=== PATIENT | male | born 1995 | race Caucasian/White ===

== ENCOUNTER 2024-01-10 10:34 | Emergency (ER) | payer SELFPAY ==
[2024-01-10 10:35] VITALS: BP 144/83; PULSE 88; RESP 15; TEMP 36.6; O2SAT 97; BMI 37.2
[2024-01-10 10:40] VITALS: BP 144/83; PULSE 89; O2SAT 98
--- NOTE | 2024-01-10 10:44 | CT_ITS ---
FINAL REPORT TECHNIQUE: Axial CT images of the face were obtained without contrast. Coronal and sagittal reformatted images were also obtained. This study was performed with techniques to keep radiation doses as low as reasonably achievable, (ALARA). Individualized dose reduction techniques using automated exposure control or adjustment of mA and/or kV according to the patient's size were employed. CLINICAL HISTORY: saw vs mandible L sided chin laceration and bone COMPARISON: Plan FINDINGS: A small bony fragment is seen adjacent to the anterior and left aspect of the mandible, with a small defect of an adjacent left canine tooth, consistent with the patient's history of injury with a saw. There is a small amount of adjacent soft tissue air present. There is no evidence of mandibular fracture. There is a soft tissue defect in the chin, slightly paracentral to the left. No other acute bony abnormality is identified. There are multiple cervical lymph nodes, in this age group likely reactive. There is mucosal thickening in the right sphenoid and maxillary sinuses. IMPRESSION: Small bone fragment adjacent to the anterior left aspect of the mandible, with a small defect of an adjacent left canine tooth, consistent with the patient's clinical history of injury with a saw. A tiny amount of soft tissue air is present as well. There is a soft tissue defect in the chin paracentral into the left as well. No other acute bony abnormality is identified. The mandible itself appears intact. Reviewed, Interpreted and Dictated by Juancho Schuster III, MD Transcribed by Taylor Card Authenticated and [facility]
--- NOTE | 2024-01-10 10:46 | ED_ITS ---
Discharge Plan Disposition Chief Complaint: Wound/Laceration Referrals Follow up/Referrals: Provider,Referral, MD [Primary Care Provider] - See instructions Clinical Impressions Clinical Impression: Complex laceration of face Instructions Patient Instructions: DI for Laceration Repair Print Language Print Language: Urdu Discharge ED Provider: Hermes Cuellar General Adult HPI General Chief complaint: Wound/Laceration Stated complaint: ao saw cut to chin and mouth Time Seen by Provider: 01/10/24 10:35 Mode of Arrival: Ambulatory Source of Information: Patient Limitations: No Limitations Description of Symptoms (Recalled from ER Triage Doc. by RN): pt presents to ED with laceration to chin, pt was working on a water line when the chair saw slipped and come up and hit him in the chin. not up to date on tetanus vaccine. History of Present Illness HPI narrative: Please note that above description of symptoms, in this electronic medical record under categorization of recalled from ER triage doctor by RN are reflective of an initial nursing assessment, however, is not reflective of my full history and physical exam that was personally taken and clarified. Consequentially, this preceding description of symptoms, which may include the patient's categorized chief complaint in the EMR, do not reflect my personal clinical impression, and the ultimate description of history of present illness and patient stated complaints should be deferred to this section of the note. Unless stated otherwise or congruent with this section of the note, additional signs, symptoms, or incongruence should be interpreted as inaccurate with my clinical impression. Related Data Allergies Allergy/AdvReac Type Severity Reaction Status Date / Time No Known Allergies Allergy Verified 01/10/24 10:46 [facility] Disclaimer: The information contained in this section may have been updated after the patient was seen, as this information can be updated by other users. Social History Smoking Status: Never smoker alcohol intake: never current occupational status: employed Travel in the last 8 weeks: None ROS Obtained: Yes All systems reviewed & no additional complaints except as documented Physical Exam General General appearance: alert Head Head exam: normocephalic and other (7 to 8 cm laceration left side of mandible at the chin with through and through injury. Bone able to be probed. Penetrates through soft tissue into oral cavity violating gingiva, root of tooth 21. Tooth is stable.) Eye Eye exam: Present normal appearance, PERRL and EOMI Neck Neck exam: Present normal inspection, full ROM and trachea midline Respiratory Respiratory exam: Absent respiratory distress, wheezes, stridor, accessory muscle use or prolonged expiratory phase Cardiovascular Cardiovascular exam: Present other (Pulses equal symmetric in upper and lower extremities) Abdominal Exam Abdominal exam: Present soft; Absent distention, tenderness or pulsatile mass Extremities Exam Extremities exam: Absent edema Neurological Exam Neurological exam: Present alert, oriented X3 and CN II-XII intact; Absent motor sensory deficit Skin Skin exam: Present warm and dry; Absent diaphoresis or erythema Medical Decision Making Medical Records Medical records reviewed: Yes I reviewed the patient's medical records. Screening: Per USPSTF and CDC recommendations, given the prevalence of disease in our region, it is our hospital?s policy to screen for HIV and viral Hepatitis for all patients aged 18 and over and those with ongoing risk factors. [place] Inquiry Pt receiving controlled substance: No [place] was queried for this patient: No Vital Signs: 01/10/24 10:35 01/10/24 10:40 Temperature 97.9 F Temperature Source Oral Pulse Rate 89 Pulse Rate [Left Radial] 88 Respiratory Rate 15 Blood Pressure 144/83 H Blood Pressure [Right Arm] 144/83 H Blood Pressure Mean [Right Arm] 103 02 Sat by Pulse Oximetry 97 98 Oxygen Delivery Method Room Air Room Air Orders (Tests/Meds): ED MEDICATIONS Discontinued Medications Generic Name Dose Route Start Last Admin Trade Name Jcq PRN Reason Stop Dose Admin Hydromorphone HCl 1 mg 01/10/24 10:44 01/10/24 10:47 Hydromorphone 2mg/Ml Syringe IV 01/10/24 10:45 1 mg ONCE ONE Administration Cefazolin Sodium 2 gm/ Sodium 100 mls @ 200 mls/hr 01/10/24 11:15 01/10/24 11:52 Chloride IV 01/10/24 11:44 200 mls/hr ONCE ONE Administration Lidocaine/Epinephrine 20 ml 01/10/24 10:44 01/10/24 10:47 Lidocaine 1% W/Epi 1:100,000 20ml Vial SQ 01/10/24 10:45 1 unit ONCE ONE Administration Ondansetron HCl 4 mg 01/10/24 10:44 01/10/24 10:47 Ondansetron 4mg/2ml Vial IV 01/10/24 10:45 4 mg ONCE ONE Administration Tetanus/Reduced Diphtheria/Acell Pertussis 0.5 ml 01/10/24 10:47 12/03/24 11:00 Tet/Diphth/Pert-Adult 0.5ml Syringe IM 01/10/24 10:48 0.5 ml .ONCE ONE Administration ORDERS Category Date Time Status CT facial bones wo con Stat Cat Scan 01/10/24 10:44 Taken Medical Decision Narrative: This is a 28-year-old male no relevant medical history presenting with facial injury. Patient states that he was installing water lines prior to this using a saw. Saw kicked back, hit him in the chin. Had immediate pain. Came immediately to the emergency department for further evaluation. No other trauma sustained. Does not remember last tetanus shot. Pain is significant, does not radiate. States that the left side of his lower lip is numb. No obvious dental fracture or loss of teeth. Has not taken anything for the pain. History obtained with patient. On arrival, patient hemodynamically stable, alert, orient ed x4, appropriate, GCS 15, moving all extremities spontaneously, pupils equal and reactive to light. Full physical exam performed and significant for patient in mild distress secondary to pain. Has 7 to 8 cm laceration left side of his chin extending superiorly toward his lip. Does not violate vermilion border. Through and through. Slow venous bleed. No evidence of arterial pulsating bleeding. Violates gingiva, root of tooth 21. Tooth is not distracted or loose. Patient has sensation on the left side of his chin, but left side of his lip subjective decrease sensation. Differential includes soft tissue injury, bony injury, dental injury, neurovascular injury, among others. Patient placed on continuous cardiac monitoring and continuous pulse ox with initial blood pressure 144/83, heart rate 88, saturation 97% on room air. Patient was given Dilaudid, Zofran, 2 g of Ancef, Tdap for symptomatic management and correction of underlying abnormalities. Irrigated extensively under high-pressure water. Workup independently interpreted and significant for significant soft tissue injury injury, but no obvious injury to the bone on CT face Noncon. See radiology read for full review of final results. On reevaluation, patient feeling better after Dilaudid. Given complexity of wound, further repair was not attempted here in the emergency department. [facility] was contacted and case was discussed, graciously accepted by Dr. Arango for facial surgery evaluation. [employer] Operator disclaimer Much of this encounter note is an electronic raw stock machine feeder spoken language to printed text. Electronic raw stock machine feeder of the spoken language may permit errors. Although I have reviewed the note, some errors may still exist. Critical Care Critical Care Time Critical Care Time: No
[2024-01-10] MEDS: LIDOCAINE 1% W/EPI 1:100,000 20ML VIAL 20 ML SQ (10:47)
[2024-01-10] MEDS: ONDANSETRON 4MG/2ML VIAL 4 MG IV (10:47)
[2024-01-10] MEDS: HYDROMORPHONE 2MG/ML SYRINGE 1 MG IV (10:47)
--- NOTE | 2024-01-10 10:55 | PC.NURSE ---
pt in CT
[2024-01-10] MEDS: TET/DIPHTH/PERT-ADULT 0.5ML SYRINGE 0.5 ML IM (11:00)
--- NOTE | 2024-01-10 11:17 | PC.NURSE ---
I rounded on the pt and took him some clean clothes from our clothing closet. no needs voiced. call olvera in reach.
[2024-01-10] MEDS: CEFAZOLIN SODIUM 2 GM in 0.9 % SODIUM CHLORIDE 100 ML IV (11:52)
--- NOTE | 2024-01-10 12:07 | PC.NURSE ---
calling [facility] at this time.
--- NOTE | 2024-01-10 12:14 | PC.NURSE ---
o/p with at this time.
[2024-01-10 12:20] VITALS: BP 133/80; PULSE 77; O2SAT 98
[2024-01-10 12:37] VITALS: BP 133/80; PULSE 91; RESP 20; TEMP 36.7; O2SAT 99
== END 2024-01-10 12:38 | disposition short-term general hospital (02) ==
PROVIDERS: Emergency Provider Emergency Medicine
DX: S01.91XA Laceration without foreign body of unspecified part of head, initial encounter (principal); R68.84 Jaw pain; Z23 Encounter for immunization; W27.0XXA Contact with workbench tool, initial encounter; Y93.89 Activity, other specified; Y92.9 Unspecified place or not applicable
CPT/HCPCS: 70486; 90471; 90715; 96365; 96374; 96375; 99284; J0690; J1171; J2405